=== PATIENT | male | born 1985 | race Caucasian/White ===

== ENCOUNTER 2016-12-20 19:16 | Inpatient (IN) | payer MEDICAID ==
[~2016-12-20 19:16] MED LIST: NICOTINE 14 MG PATCH TOP SCH
[2016-12-20] MEDS ORDERED: LIDOCAINE-EPINEPH-TETRACAINE 3 ML SYRINGE TOP STA (19:38)
[2016-12-20] MEDS ORDERED: LIDOCAINE-EPINEPH-TETRACAINE 3 ML SYRINGE TOP ONE (19:39)
[2016-12-20] MEDS ORDERED: SODIUM CHLORIDE 0.9% 1,000 ML IV ONE ×2 (20:12)
[2016-12-20] MEDS ORDERED: FOLIC ACID INJ 1 MG, THIAMINE INJ 100 MG, MAGNESIUM SULFATE 2 GM, MULTIVITAMIN 10 ML in... IV STA ×5 (20:27)
[2016-12-20] MEDS ORDERED: MAGNESIUM SULFATE 2 GRAM 50 ML IV ONE (20:44)
[2016-12-20] MEDS ORDERED: THIAMINE 100 MG/1 ML 2 ML MDV ONE (20:45)
[2016-12-20] MEDS ORDERED: ONDANSETRON 4 MG/2 ML VIAL IVP PRN (21:49)
[2016-12-20] MEDS ORDERED: PROCHLORPERAZINE 10 MG/2 ML VIAL IVP PRN (21:49)
[2016-12-20] MEDS ORDERED: TEMAZEPAM 15 MG CAPSULE PO PRN (21:49)
[2016-12-20] MEDS ORDERED: levETIRAcetam INJ 1,000 MG in SODIUM CHLORIDE 0.9% 100ML 100 ML IV STA (21:49)
[2016-12-20] MEDS ORDERED: ACETAMINOPHEN 325 MG TABLET PO PRN (21:49)
[2016-12-20] MEDS ORDERED: LORazepam 2 MG/ML SYRINGE IVP STA (21:49)
[2016-12-20] MEDS: SODIUM CHLORIDE FLUSH 0.9% 10 ML SYRINGE IVP SCH (22:40)
[2016-12-20] MEDS ORDERED: LORazepam 2 MG/ML SYRINGE ONE (22:59)
[2016-12-20] MEDS: MORPHINE 2 MG/ML SYRINGE IVP PRN (23:03)
[2016-12-20] MEDS: NS W/20 MEQ KCL 1,000 ML IV SCH (23:09)
[2016-12-21] MEDS: MORPHINE 2 MG/ML SYRINGE IVP PRN ×7 (01:51→21:55)
[2016-12-21] MEDS: SODIUM CHLORIDE FLUSH 0.9% 10 ML SYRINGE IVP PRN (01:51)
[2016-12-21] MEDS ORDERED: POTASSIUM CHLOR 10 MEQ/100 ML 100 ML IV ONE (02:23)
[2016-12-21] MEDS: POTASSIUM CHLOR 10 MEQ/100 ML 100 ML IV SCH ×4 (03:27→07:54)
[2016-12-21] MEDS: oxyCODONE 5 MG TABLET PO PRN ×4 (03:27→21:54)
[2016-12-21] MEDS: NS W/20 MEQ KCL 1,000 ML IV SCH ×2 (08:38→21:53)
[2016-12-21] MEDS ORDERED: MULTIVITAMIN 10 ML, THIAMINE INJ 100 MG, FOLIC ACID INJ 1 MG in SODIUM CHLORIDE 0.9% 1,... IV SCH (09:00)
[2016-12-21] MEDS ORDERED: ENOXAPARIN 40 MG/0.4 ML SYRINGE SUBQ SCH (09:00)
[2016-12-21] MEDS ORDERED: carBAMazepine 200 MG TABLET PO SCH (09:00)
[2016-12-21] MEDS: LORazepam 2 MG/ML SYRINGE IVP PRN ×4 (09:03→19:36)
[2016-12-21] MEDS: SODIUM CHLORIDE FLUSH 0.9% 10 ML SYRINGE IVP SCH ×3 (09:26→22:03)
[2016-12-21] MEDS: carBAMazepine 200 MG TABLET PO SCH ×2 (09:58→21:53)
[2016-12-21] MEDS: CARVEDILOL 12.5 MG TABLET PO SCH ×2 (09:59→21:53)
[2016-12-21] MEDS: NICOTINE 14 MG PATCH TOP SCH (10:02)
[2016-12-21] MEDS: POLYETHYLENE GLYCOL 3350 17 GM PACKET PO SCH (10:02)
[2016-12-21] MEDS: POTASSIUM CHLORIDE 20 MEQ TABLET PO SCH ×2 (11:59→21:53)
[2016-12-22] MEDS: MORPHINE 2 MG/ML SYRINGE IVP PRN ×5 (00:09→10:18)
[2016-12-22] MEDS: SODIUM CHLORIDE FLUSH 0.9% 10 ML SYRINGE IVP SCH ×4 (05:40→20:25)
[2016-12-22] MEDS: NS W/20 MEQ KCL 1,000 ML IV SCH (07:52)
[2016-12-22] MEDS: POTASSIUM CHLORIDE 20 MEQ TABLET PO SCH ×3 (07:53→20:14)
[2016-12-22] MEDS: carBAMazepine 200 MG TABLET PO SCH ×2 (07:53→20:14)
[2016-12-22] MEDS: CARVEDILOL 12.5 MG TABLET PO SCH ×2 (07:54→20:14)
[2016-12-22] MEDS: LORazepam 2 MG/ML SYRINGE IVP PRN ×4 (07:58→22:42)
[2016-12-22] MEDS ORDERED: THIAMINE 100 MG TABLET PO SCH (08:00)
[2016-12-22] MEDS ORDERED: PRENATAL VITAMIN TABLET PO SCH (08:00)
[2016-12-22] MEDS ORDERED: FOLIC ACID 1 MG TABLET PO SCH (09:00)
[2016-12-22] MEDS: POLYETHYLENE GLYCOL 3350 17 GM PACKET PO SCH (09:10)
[2016-12-22] MEDS: NICOTINE 14 MG PATCH TOP SCH (09:10)
[2016-12-22] MEDS ORDERED: SODIUM CHLORIDE 0.9% 1,000 ML IV ONE (11:31)
[2016-12-22] MEDS ORDERED: MIDAZOLAM 2 MG/2 ML VIAL IVP ONE (11:45)
[2016-12-22] MEDS ORDERED: PROPOFOL 200 MG/20 ML VIAL IVP ONE (11:45)
[2016-12-22] MEDS ORDERED: TRANEXAMIC ACID 1,000 MG/10 ML VIAL IV ONE (11:45)
[2016-12-22] MEDS ORDERED: LIDOCAINE-PF 2% 10 ML AMP SUBQ ONE (11:45)
[2016-12-22] MEDS ORDERED: SUCCINYLCHOLINE 200 MG/10 ML VIAL IVP ONE (11:45)
[2016-12-22] MEDS ORDERED: ACETAMINOPHEN 1,000 MG/100 ML VIAL IV ONE (11:45)
[2016-12-22] MEDS ORDERED: DEXAMETHASONE 4 MG/ML VIAL IVP ONE (11:45)
[2016-12-22] MEDS ORDERED: ONDANSETRON 4 MG/2 ML VIAL IVP ONE (11:45)
[2016-12-22] MEDS ORDERED: fentaNYL 100 MCG/2 ML VIAL IVP ONE (11:45)
[2016-12-22] MEDS ORDERED: ROCURONIUM 50 MG/5 ML VIAL IVP ONE (11:45)
[2016-12-22] MEDS ORDERED: KETOROLAC 30 MG/ML VIAL IM ONE (11:57)
[2016-12-22] MEDS ORDERED: EPINEPHrine 1 MG/ML AMP IM ONE (11:59)
[2016-12-22] MEDS ORDERED: ROPIVACAINE 0.2% PF 20 ML AMPULE SUBQ ONE (12:00)
[2016-12-22] MEDS ORDERED: MORPHINE PF 5 MG/10 ML AMP SUBQ ONE (12:01)
[2016-12-22] MEDS ORDERED: LACTATED RINGERS 1,000 ML IV ONE (12:03)
[2016-12-22] MEDS ORDERED: ONDANSETRON 4 MG/2 ML VIAL IVP PRN (13:16)
[2016-12-22] MEDS ORDERED: ACETAMINOPHEN 325 MG TABLET PO PRN (13:16)
[2016-12-22] MEDS ORDERED: SENNA 8.6 MG TABLET PO PRN (13:16)
[2016-12-22] MEDS ORDERED: BISACODYL 10 MG SUPP PR PRN (13:16)
[2016-12-22] MEDS ORDERED: PROCHLORPERAZINE 10 MG/2 ML VIAL IVP PRN (13:16)
[2016-12-22] MEDS: LACTATED RINGERS 1,000 ML IV SCH ×2 (14:56→20:13)
[2016-12-22] MEDS ORDERED: LORazepam 0.5 MG TABLET PO STA (19:13)
[2016-12-22] MEDS: ceFAZolin 2 GM/50 ML 50 ML IV SCH (20:14)
[2016-12-23] MEDS: LORazepam 2 MG/ML SYRINGE IVP PRN ×8 (00:41→15:35)
[2016-12-23] MEDS: ceFAZolin 2 GM/50 ML 50 ML IV SCH (04:35)
[2016-12-23] MEDS ORDERED: HALOPERIDOL 5 MG/ML VIAL IM ONE (04:49)
[2016-12-23] MEDS: SODIUM CHLORIDE FLUSH 0.9% 10 ML SYRINGE IVP SCH ×3 (06:11→21:04)
[2016-12-23] MEDS: LACTATED RINGERS 1,000 ML IV SCH ×2 (07:10→07:23)
[2016-12-23] MEDS ORDERED: HALOPERIDOL 5 MG/ML VIAL IVP SCH (11:00)
[2016-12-23] MEDS ORDERED: MAGNESIUM SULFATE 5 GM/10 ML VIAL IV STA (11:27)
[2016-12-23] MEDS ORDERED: HALOPERIDOL 5 MG/ML VIAL IVP ONE (11:38)
[2016-12-23] MEDS ORDERED: HALOPERIDOL 5 MG/ML VIAL IVP PRN (11:41)
[2016-12-23] MEDS ORDERED: SODIUM PHOSPHATE 15 MMOL in SODIUM CHLORIDE 0.9% 250 ML IV ONE (12:00)
[2016-12-23] MEDS ORDERED: MAGNESIUM SULFATE 2 GRAM 50 ML IV ONE (12:00)
[2016-12-23] MEDS: NICOTINE 14 MG PATCH TOP SCH ×2 (13:56→14:20)
[2016-12-23] MEDS: POLYETHYLENE GLYCOL 3350 17 GM PACKET PO SCH ×2 (13:56→14:21)
[2016-12-23] MEDS: CARVEDILOL 12.5 MG TABLET PO SCH ×2 (13:56→20:50)
[2016-12-23] MEDS: METOPROLOL 5 MG/5 ML VIAL IVP SCH ×2 (14:19→18:10)
[2016-12-23] MEDS: levETIRAcetam INJ 500 MG in SODIUM CHLORIDE 0.9% 100ML 100 ML IV SCH ×2 (14:22→20:48)
[2016-12-23] MEDS ORDERED: POTASSIUM CHLORIDE 20 MEQ TABLET PO ONE (14:30)
[2016-12-23] MEDS: LORazepam 100MG/100ML 100 ML IV SCH ×3 (14:32→20:49)
[2016-12-23] MEDS: MULTIVITAMIN 10 ML, FOLIC ACID INJ 1 MG, THIAMINE INJ 100 MG, MAGNESIUM SULFATE 2 GM in... IV SCH ×5 (14:34)
[2016-12-23] MEDS: oxyCOD/ACETAMIN 5 MG/325 MG TABLET PO PRN (15:35)
[2016-12-23] MEDS: MORPHINE 2 MG/ML SYRINGE IVP PRN (15:36)
[2016-12-24] MEDS: METOPROLOL 5 MG/5 ML VIAL IVP SCH ×4 (00:03→17:43)
[2016-12-24] MEDS: LORazepam 100MG/100ML 100 ML IV SCH ×3 (03:09→23:18)
[2016-12-24] MEDS: SODIUM CHLORIDE FLUSH 0.9% 10 ML SYRINGE IVP SCH ×2 (05:51→15:14)
[2016-12-24] MEDS: CARVEDILOL 12.5 MG TABLET PO SCH ×2 (09:38→23:34)
[2016-12-24] MEDS: ENOXAPARIN 30 MG/0.3 ML SYRINGE SUBQ SCH (09:39)
[2016-12-24] MEDS: levETIRAcetam INJ 500 MG in SODIUM CHLORIDE 0.9% 100ML 100 ML IV SCH ×2 (09:48→20:41)
[2016-12-24] MEDS: MULTIVITAMIN 10 ML, FOLIC ACID INJ 1 MG, THIAMINE INJ 100 MG, MAGNESIUM SULFATE 2 GM in... IV SCH ×5 (10:15)
[2016-12-24] MEDS: LORazepam 2 MG/ML SYRINGE IVP PRN (12:19)
[2016-12-24] MEDS: SODIUM CHLORIDE FLUSH 0.9% 10 ML SYRINGE IVP PRN (13:36)
[2016-12-24] MEDS: MORPHINE 2 MG/ML SYRINGE IVP PRN ×2 (13:36→22:51)
[2016-12-25] MEDS: SODIUM CHLORIDE FLUSH 0.9% 10 ML SYRINGE IVP SCH ×4 (00:22→21:42)
[2016-12-25] MEDS: METOPROLOL 5 MG/5 ML VIAL IVP SCH ×4 (00:28→18:47)
[2016-12-25] MEDS: LORazepam 100MG/100ML 100 ML IV SCH ×4 (04:16→23:35)
[2016-12-25] MEDS: POTASSIUM CHLORIDE 20 MEQ TABLET PO SCH ×2 (06:09→10:24)
[2016-12-25] MEDS: oxyCOD/ACETAMIN 5 MG/325 MG TABLET PO PRN (06:18)
[2016-12-25] MEDS: levETIRAcetam INJ 500 MG in SODIUM CHLORIDE 0.9% 100ML 100 ML IV SCH ×2 (09:02→21:29)
[2016-12-25] MEDS: CARVEDILOL 12.5 MG TABLET PO SCH ×2 (09:05→21:43)
[2016-12-25] MEDS: NICOTINE 14 MG PATCH TOP SCH (09:06)
[2016-12-25] MEDS: ENOXAPARIN 30 MG/0.3 ML SYRINGE SUBQ SCH (10:35)
[2016-12-25] MEDS: POLYETHYLENE GLYCOL 3350 17 GM PACKET PO SCH (10:39)
[2016-12-25] MEDS: MULTIVITAMIN 10 ML, FOLIC ACID INJ 1 MG, THIAMINE INJ 100 MG, MAGNESIUM SULFATE 2 GM in... IV SCH ×5 (10:40)
[2016-12-25] MEDS: MORPHINE 2 MG/ML SYRINGE IVP PRN (21:29)
[2016-12-25] MEDS: ACETAMINOPHEN 1,000 MG/100 ML 100 ML IV PRN (23:05)
[2016-12-26] MEDS: METOPROLOL 5 MG/5 ML VIAL IVP SCH ×4 (00:04→19:36)
[2016-12-26] MEDS: MORPHINE 2 MG/ML SYRINGE IVP PRN (00:15)
[2016-12-26] MEDS ORDERED: HALOPERIDOL 5 MG/ML VIAL IM SCH (00:48)
[2016-12-26] MEDS: LORazepam 100MG/100ML 100 ML IV SCH ×4 (03:15→21:37)
[2016-12-26] MEDS: SODIUM CHLORIDE FLUSH 0.9% 10 ML SYRINGE IVP SCH ×3 (06:06→23:33)
[2016-12-26] MEDS: ACETAMINOPHEN 1,000 MG/100 ML 100 ML IV PRN (08:34)
[2016-12-26] MEDS: CARVEDILOL 12.5 MG TABLET PO SCH ×2 (09:42→21:02)
[2016-12-26] MEDS: MULTIVITAMIN 10 ML, FOLIC ACID INJ 1 MG, THIAMINE INJ 100 MG, MAGNESIUM SULFATE 2 GM in... IV SCH ×5 (09:43)
[2016-12-26] MEDS: levETIRAcetam INJ 500 MG in SODIUM CHLORIDE 0.9% 100ML 100 ML IV SCH ×2 (09:43→21:02)
[2016-12-26] MEDS: ENOXAPARIN 30 MG/0.3 ML SYRINGE SUBQ SCH (09:43)
[2016-12-26] MEDS: POLYETHYLENE GLYCOL 3350 17 GM PACKET PO SCH (09:43)
[2016-12-26] MEDS: NICOTINE 14 MG PATCH TOP SCH (09:59)
[2016-12-26] MEDS ORDERED: POTASSIUM CHLORIDE 20 MEQ TABLET PO ONE (16:15)
[2016-12-26] MEDS: SENNA 8.6 MG TABLET PO SCH ×2 (17:26→23:33)
[2016-12-27] MEDS: METOPROLOL 5 MG/5 ML VIAL IVP SCH ×4 (00:28→18:14)
[2016-12-27] MEDS: LORazepam 100MG/100ML 100 ML IV SCH ×4 (03:54→23:28)
[2016-12-27] MEDS: SENNA 8.6 MG TABLET PO SCH ×2 (06:14→11:56)
[2016-12-27] MEDS: SODIUM CHLORIDE FLUSH 0.9% 10 ML SYRINGE IVP SCH ×3 (06:29→22:56)
[2016-12-27] MEDS: levETIRAcetam INJ 500 MG in SODIUM CHLORIDE 0.9% 100ML 100 ML IV SCH ×2 (11:29→21:50)
[2016-12-27] MEDS: CARVEDILOL 12.5 MG TABLET PO SCH ×2 (11:55→21:14)
[2016-12-27] MEDS: NICOTINE 14 MG PATCH TOP SCH (11:55)
[2016-12-27] MEDS: ENOXAPARIN 30 MG/0.3 ML SYRINGE SUBQ SCH (11:55)
[2016-12-27] MEDS: THIAMINE 100 MG TABLET PO SCH (11:56)
[2016-12-27] MEDS: PRENATAL VITAMIN TABLET PO SCH (11:56)
[2016-12-27] MEDS: POLYETHYLENE GLYCOL 3350 17 GM PACKET PO SCH (11:57)
[2016-12-27] MEDS ORDERED: POTASSIUM CHLORIDE 20 MEQ TABLET PO ONE ×2 (12:43→15:00)
[2016-12-27] MEDS: LORazepam 2 MG/ML SYRINGE IVP PRN ×3 (14:21→16:01)
[2016-12-27] MEDS: MAGNESIUM OXIDE 400 MG TABLET PO SCH ×2 (14:44→19:38)
[2016-12-27] MEDS ORDERED: LORazepam 2 MG/ML SYRINGE IVP STA (16:25)
[2016-12-27] MEDS ORDERED: MAGNESIUM SULFATE 2 GRAM 50 ML IV ONE ×2 (19:40→19:46)
[2016-12-27] MEDS: MORPHINE 2 MG/ML SYRINGE IVP PRN (19:56)
[2016-12-27] MEDS ORDERED: MAGNESIUM SULFATE 2 GRAM 50 ML IV SCH (20:17)
[2016-12-27] MEDS ORDERED: HALOPERIDOL 5 MG/ML VIAL IM ONE (20:56)
[2016-12-28] MEDS: METOPROLOL 5 MG/5 ML VIAL IVP SCH ×4 (00:14→19:22)
[2016-12-28] MEDS: LORazepam 100MG/100ML 100 ML IV SCH ×4 (04:33→19:51)
[2016-12-28] MEDS ORDERED: CALCIUM GLUCONATE 1,000 MG in SODIUM CHLORIDE 0.9% 50 ML IV SCH (06:27)
[2016-12-28] MEDS: SODIUM CHLORIDE FLUSH 0.9% 10 ML SYRINGE IVP SCH ×3 (06:47→21:37)
[2016-12-28] MEDS: POTASSIUM CHLOR 10 MEQ/100 ML 100 ML IV SCH ×4 (08:20→12:02)
[2016-12-28] MEDS: levETIRAcetam INJ 500 MG in SODIUM CHLORIDE 0.9% 100ML 100 ML IV SCH ×2 (09:00→21:37)
[2016-12-28] MEDS ORDERED: MAGNESIUM SULFATE 2 GRAM 50 ML IV ONE (10:02)
[2016-12-28] MEDS: PRENATAL VITAMIN TABLET PO SCH (10:10)
[2016-12-28] MEDS: POLYETHYLENE GLYCOL 3350 17 GM PACKET PO SCH (10:11)
[2016-12-28] MEDS: NICOTINE 14 MG PATCH TOP SCH (10:12)
[2016-12-28] MEDS: CARVEDILOL 12.5 MG TABLET PO SCH ×2 (10:12→21:24)
[2016-12-28] MEDS: THIAMINE 100 MG TABLET PO SCH (10:14)
[2016-12-28] MEDS: ENOXAPARIN 30 MG/0.3 ML SYRINGE SUBQ SCH (10:36)
[2016-12-28] MEDS ORDERED: HALOPERIDOL 5 MG/ML VIAL IM PRN (23:10)
[2016-12-28] MEDS: MORPHINE 2 MG/ML SYRINGE IVP PRN (23:56)
[2016-12-29] MEDS: METOPROLOL 5 MG/5 ML VIAL IVP SCH ×4 (00:07→18:12)
[2016-12-29] MEDS: LORazepam 100MG/100ML 100 ML IV SCH ×4 (00:22→17:45)
[2016-12-29] MEDS: SODIUM CHLORIDE FLUSH 0.9% 10 ML SYRINGE IVP SCH ×3 (05:08→22:00)
[2016-12-29] MEDS: POLYETHYLENE GLYCOL 3350 17 GM PACKET PO SCH (09:09)
[2016-12-29] MEDS: levETIRAcetam INJ 500 MG in SODIUM CHLORIDE 0.9% 100ML 100 ML IV SCH ×2 (09:42→21:23)
[2016-12-29] MEDS: ENOXAPARIN 30 MG/0.3 ML SYRINGE SUBQ SCH (09:43)
[2016-12-29] MEDS: NICOTINE 14 MG PATCH TOP SCH (09:43)
[2016-12-29] MEDS: CARVEDILOL 12.5 MG TABLET PO SCH ×2 (09:44→21:23)
[2016-12-29] MEDS: THIAMINE 100 MG TABLET PO SCH (09:44)
[2016-12-29] MEDS: PRENATAL VITAMIN TABLET PO SCH (09:50)
[2016-12-29] MEDS: oxyCOD/ACETAMIN 5 MG/325 MG TABLET PO PRN (21:23)
[2016-12-30] MEDS: METOPROLOL 5 MG/5 ML VIAL IVP SCH ×4 (06:29→18:19)
[2016-12-30] MEDS: SODIUM CHLORIDE FLUSH 0.9% 10 ML SYRINGE IVP SCH ×3 (06:31→22:01)
[2016-12-30] MEDS: MAGNESIUM OXIDE 400 MG TABLET PO SCH ×2 (07:27→15:32)
[2016-12-30] MEDS: POLYETHYLENE GLYCOL 3350 17 GM PACKET PO SCH (08:55)
[2016-12-30] MEDS: PRENATAL VITAMIN TABLET PO SCH (08:55)
[2016-12-30] MEDS: NICOTINE 14 MG PATCH TOP SCH (08:56)
[2016-12-30] MEDS: THIAMINE 100 MG TABLET PO SCH (08:56)
[2016-12-30] MEDS: CARVEDILOL 12.5 MG TABLET PO SCH ×2 (08:56→21:17)
[2016-12-30] MEDS: ENOXAPARIN 30 MG/0.3 ML SYRINGE SUBQ SCH (08:56)
[2016-12-30] MEDS: levETIRAcetam INJ 500 MG in SODIUM CHLORIDE 0.9% 100ML 100 ML IV SCH ×2 (08:56→21:17)
[2016-12-30] MEDS ORDERED: MAGNESIUM OXIDE 400 MG TABLET PO SCH (16:00)
[2016-12-31] MEDS: METOPROLOL 5 MG/5 ML VIAL IVP SCH ×4 (00:01→18:12)
[2016-12-31] MEDS: SODIUM CHLORIDE FLUSH 0.9% 10 ML SYRINGE IVP SCH ×3 (06:17→23:46)
[2016-12-31] MEDS: MAGNESIUM OXIDE 400 MG TABLET PO SCH ×2 (06:17→12:10)
[2016-12-31] MEDS: POLYETHYLENE GLYCOL 3350 17 GM PACKET PO SCH (08:01)
[2016-12-31] MEDS: THIAMINE 100 MG TABLET PO SCH (08:01)
[2016-12-31] MEDS: PRENATAL VITAMIN TABLET PO SCH (08:01)
[2016-12-31] MEDS: NICOTINE 14 MG PATCH TOP SCH (08:01)
[2016-12-31] MEDS: ENOXAPARIN 30 MG/0.3 ML SYRINGE SUBQ SCH (08:02)
[2016-12-31] MEDS: levETIRAcetam INJ 500 MG in SODIUM CHLORIDE 0.9% 100ML 100 ML IV SCH ×2 (09:13→21:32)
[2016-12-31] MEDS: CARVEDILOL 12.5 MG TABLET PO SCH ×2 (09:45→21:32)
[2016-12-31] MEDS: oxyCOD/ACETAMIN 5 MG/325 MG TABLET PO PRN ×2 (09:52→18:09)
[2017-01-01] MEDS: METOPROLOL 5 MG/5 ML VIAL IVP SCH ×2 (00:59→05:55)
[2017-01-01] MEDS: oxyCOD/ACETAMIN 5 MG/325 MG TABLET PO PRN ×4 (01:24→21:09)
[2017-01-01] MEDS: SODIUM CHLORIDE FLUSH 0.9% 10 ML SYRINGE IVP SCH ×3 (05:56→21:10)
[2017-01-01] MEDS: NICOTINE 14 MG PATCH TOP SCH (09:33)
[2017-01-01] MEDS: levETIRAcetam INJ 500 MG in SODIUM CHLORIDE 0.9% 100ML 100 ML IV SCH (09:36)
[2017-01-01] MEDS: CARVEDILOL 12.5 MG TABLET PO SCH ×2 (10:19→21:09)
[2017-01-01] MEDS: PRENATAL VITAMIN TABLET PO SCH (10:20)
[2017-01-01] MEDS: THIAMINE 100 MG TABLET PO SCH (10:21)
[2017-01-01] MEDS: ENOXAPARIN 30 MG/0.3 ML SYRINGE SUBQ SCH (10:23)
[2017-01-01] MEDS: POLYETHYLENE GLYCOL 3350 17 GM PACKET PO SCH (10:23)
[2017-01-01] MEDS: SODIUM CHLORIDE FLUSH 0.9% 10 ML SYRINGE IVP PRN (10:26)
[2017-01-01] MEDS: levETIRAcetam 250 MG TABLET PO SCH (21:09)
[2017-01-02] MEDS: SODIUM CHLORIDE FLUSH 0.9% 10 ML SYRINGE IVP SCH ×3 (05:31→20:58)
[2017-01-02] MEDS: CARVEDILOL 12.5 MG TABLET PO SCH ×2 (09:26→20:56)
[2017-01-02] MEDS: THIAMINE 100 MG TABLET PO SCH (09:27)
[2017-01-02] MEDS: levETIRAcetam 250 MG TABLET PO SCH ×2 (09:27→20:56)
[2017-01-02] MEDS: PRENATAL VITAMIN TABLET PO SCH ×2 (09:27→09:28)
[2017-01-02] MEDS: POLYETHYLENE GLYCOL 3350 17 GM PACKET PO SCH (09:28)
[2017-01-02] MEDS: NICOTINE 14 MG PATCH TOP SCH ×2 (09:28→12:49)
[2017-01-02] MEDS: ENOXAPARIN 30 MG/0.3 ML SYRINGE SUBQ SCH (09:29)
[2017-01-02] MEDS: oxyCOD/ACETAMIN 5 MG/325 MG TABLET PO PRN ×2 (09:31→19:48)
[2017-01-02] MEDS ORDERED: MAGNESIUM OXIDE 400 MG TABLET PO SCH (20:40)
[2017-01-03] MEDS: SODIUM CHLORIDE FLUSH 0.9% 10 ML SYRINGE IVP SCH (06:44)
[2017-01-03] MEDS: oxyCOD/ACETAMIN 5 MG/325 MG TABLET PO PRN (07:56)
[2017-01-03] MEDS: NICOTINE 14 MG PATCH TOP SCH (09:18)
[2017-01-03] MEDS: POLYETHYLENE GLYCOL 3350 17 GM PACKET PO SCH (09:18)
[2017-01-03] MEDS: CARVEDILOL 12.5 MG TABLET PO SCH (09:19)
[2017-01-03] MEDS: THIAMINE 100 MG TABLET PO SCH (09:19)
[2017-01-03] MEDS: levETIRAcetam 250 MG TABLET PO SCH (09:19)
[2017-01-03] MEDS: PRENATAL VITAMIN TABLET PO SCH (09:20)
[2017-01-03] MEDS: ENOXAPARIN 30 MG/0.3 ML SYRINGE SUBQ SCH (09:20)
== END 2017-01-03 12:40 | disposition home health service (06) | DRG 470 ==
PROC: 0HQ1XZZ Repair Face Skin, External Approach (ICD-10-PCS; 2016-12-20)
PROC: 0SRS0JA Replacement of Left Hip Joint, Femoral Surface with Synthetic Substitute, Uncemented, Open Approach (ICD-10-PCS; principal; 2016-12-22 11:30)
DX: S72.002A Fracture of unspecified part of neck of left femur, initial encounter for closed fracture (principal); E87.1 Hypo-osmolality and hyponatremia; F10.231 Alcohol dependence with withdrawal delirium; G40.909 Epilepsy, unspecified, not intractable, without status epilepticus; E87.6 Hypokalemia; F10.10 Alcohol abuse, uncomplicated; F17.200 Nicotine dependence, unspecified, uncomplicated; S01.81XA Laceration without foreign body of other part of head, initial encounter; I10 Essential (primary) hypertension; E83.51 Hypocalcemia; W19.XXXA Unspecified fall, initial encounter; Y92.009 Unspecified place in unspecified non-institutional (private) residence as the place of occurrence of the external cause; E86.1 Hypovolemia; E87.8 Other disorders of electrolyte and fluid balance, not elsewhere classified; D69.6 Thrombocytopenia, unspecified; M81.0 Age-related osteoporosis without current pathological fracture; E83.42 Hypomagnesemia; Z91.14 Patient's other noncompliance with medication regimen; R73.09 Other abnormal glucose

== ENCOUNTER 2017-01-30 08:21 | Outpatient (CLI) | payer MEDICAID | END 2017-01-30 08:22 | disposition home or self-care (01) | DX: F10.259 Alcohol dependence with alcohol-induced psychotic disorder, unspecified (principal); R56.9 Unspecified convulsions ==

== ENCOUNTER 2017-07-09 10:04 | Outpatient (CLI) | payer MEDICAID ==
--- NOTE | 2017-07-09 12:48 | Mammography Report ---
DIGITAL DIAGNOSTIC BILATERAL MAMMOGRAM: 07/09/2017 CLINICAL INDICATION: Palpable abnormality and pain, right greater than left. TECHNIQUE: Bilateral CC and MLO views. FINDINGS: The breasts demonstrate fatty replacement. There is asymmetric gynecomastia present, righ t greater than left. No suspicious masses, clustered microcalcifications, or regions of architectura l distortion are identified. IMPRESSION: ASYMMETRIC GYNECOMASTIA. RECOMMENDATION: Continued clinical management. BIRADS CATEGORY 2 - BENIGN FINDINGS. STANDARD QUALIFYING STATEMENTS 1. This examination was reviewed with the aid of Computer-Aided Detection (CAD). 2. A negative or benign imaging report should not delay biopsy if clinically suspicious findings are present. Consider surgical consultation if warranted. More than 5% of cancers are not identified by i maging. 3. Dense breasts may obscure an underlying neoplasm. JOB #: [id number] EXT JOB #:[id number]
== END 2017-07-09 10:05 | disposition home or self-care (01) ==
LOC: DI 10:04
PROVIDERS: ATTEND Physician Assistant
DX: N62 Hypertrophy of breast (principal)
CPT/HCPCS: 77066

== ENCOUNTER 2018-01-01 09:38 | Outpatient (CLI) | payer MEDICAID ==
[2018-01-01 12:42] LABS: BASOPHILS # (AUTO) 0.1 10^3/uL (0.0-0.1); BASOPHILS % (AUTO) 0.5 %; EOSINOPHILS # (AUTO) 0.5 10^3/uL (0.0-0.7); EOSINOPHILS % (AUTO) 5.1 %; HGB - HEMOGLOBIN 16.2 g/dL (14.0-18.0); LYMPHOCYTES # (AUTO) 3.4 10^3/uL (1.5-3.5); LYMPHOCYTES % (AUTO) 32.2 %; MEAN CORPUSCULAR HEMOGLOBIN 32.2 pg (27.0-31.0); MEAN CORPUSCULAR HGB CONC 34.1 g/dL (32.0-36.0); MEAN CORPUSCULAR VOLUME 94.3 fL (80.0-94.0); MEAN PLATELET VOLUME 7.6 fL (7.4-11.4); MONOCYTES # (AUTO) 0.6 10^3/uL (0.0-1.0); MONOCYTES % (AUTO) 5.6 %; NEUTROPHILS % (AUTO) 56.6 %; PLT - PLATELET COUNT 285 10^3/uL (130-450); RED BLOOD COUNT 5.02 10^6/uL (4.70-6.10); WHITE BLOOD COUNT 10.6 x10^3/uL (4.8-10.8)
[2018-01-01 12:55] LABS: THYROID STIMULATING HORMONE 3.09 uIU/mL (0.34-5.60)
[2018-01-01 12:58] LABS: ALBUMIN 4.6 g/dL (3.2-5.5); ALBUMIN/GLOBULIN RATIO 1.4 (1.0-2.2); ALKALINE PHOSPHATASE 107 IU/L (42-121); ALT ALANINE AMINOTRANSFERASE 19 IU/L (10-60); AST ASPARTATE AMINOTRANSFERASE 23 IU/L (10-42); BILIRUBIN,TOTAL 0.6 mg/dL (0.2-1.0); BUN - BLOOD UREA NITROGEN 10 mg/dL (6-20); CALCIUM 9.2 mg/dL (8.5-10.3); CARBAMAZEPINE (TEGRETOL) 6.2 ug/mL; CARBON DIOXIDE - CO2 27 mmol/L (21-32); CHLORIDE 98 mmol/L (101-111); CHOL/HDL RATIO 4.9 (<5.0); CHOLESTEROL 222 mg/dL; CREATININE 0.7 mg/dL (0.6-1.2); GFR - MDRD 129 (>89); GLUCOSE 111 mg/dL (70-100); HDL CHOLESTEROL 45 mg/dL; LDL CHOLESTEROL,CALCULATED 142 mg/dL; LDL/HDL RATIO 3.2 (<3.6); SODIUM 135 mmol/L (135-145); VLDL CHOLESTEROL 35 mg/dL
== END 2018-01-01 09:39 | disposition home or self-care (01) ==
LOC: LAB.N 09:38
PROVIDERS: ATTEND Physician Assistant Medical
DX: F17.200 Nicotine dependence, unspecified, uncomplicated (principal); R00.0 Tachycardia, unspecified; K76.0 Fatty (change of) liver, not elsewhere classified; I10 Essential (primary) hypertension; E53.8 Deficiency of other specified B group vitamins; R79.89 Other specified abnormal findings of blood chemistry; N63.10 Unspecified lump in the right breast, unspecified quadrant; R56.9 Unspecified convulsions
CPT/HCPCS: 36415; 80053; 80061; 80156; 82746; 83721; 84443; 85025

== ENCOUNTER 2018-11-29 10:44 | Outpatient (CLI) | payer MEDICAID | END 2018-11-29 23:59 | disposition home or self-care (01) | LOC: RT.N 10:44 | PROVIDERS: ATTEND Physician Assistant Medical | DX: R00.2 Palpitations (principal) | CPT/HCPCS: 93005 ==

== ENCOUNTER 2018-12-08 10:17 | Outpatient (CLI) | payer MEDICAID ==
[2018-12-08 12:51] LABS: BASOPHILS # (AUTO) 0.1 10^3/uL (0.0-0.1); EOSINOPHILS # (AUTO) 0.5 10^3/uL (0.0-0.7); EOSINOPHILS % (AUTO) 5.1 %; HGB - HEMOGLOBIN 16.1 g/dL (14.0-18.0); LYMPHOCYTES # (AUTO) 3.1 10^3/uL (1.5-3.5); LYMPHOCYTES % (AUTO) 34.7 %; MEAN CORPUSCULAR HEMOGLOBIN 32.5 pg (27.0-31.0); MEAN CORPUSCULAR HGB CONC 33.9 g/dL (32.0-36.0); MEAN CORPUSCULAR VOLUME 95.8 fL (80.0-94.0); MEAN PLATELET VOLUME 7.8 fL (7.4-11.4); MONOCYTES # (AUTO) 0.6 10^3/uL (0.0-1.0); MONOCYTES % (AUTO) 6.7 %; NEUTROPHILS # (AUTO) 4.7 10^3/uL (1.5-6.6); NEUTROPHILS % (AUTO) 52.5 %; PLT - PLATELET COUNT 225 10^3/uL (130-450); RED BLOOD COUNT 4.95 10^6/uL (4.70-6.10); RED CELL DISTRIBUTION WIDTH 13.1 % (12.0-15.0); WHITE BLOOD COUNT 8.9 x10^3/uL (4.8-10.8)
[2018-12-08 13:16] LABS: ALBUMIN 4.6 g/dL (3.2-5.5); ALBUMIN/GLOBULIN RATIO 1.2 (1.0-2.2); ALKALINE PHOSPHATASE 79 IU/L (42-121); ALT ALANINE AMINOTRANSFERASE 21 IU/L (10-60); AST ASPARTATE AMINOTRANSFERASE 25 IU/L (10-42); BILIRUBIN,TOTAL 0.6 mg/dL (0.2-1.0); BUN - BLOOD UREA NITROGEN 9 mg/dL (6-20); CALCIUM 9.2 mg/dL (8.5-10.3); CARBAMAZEPINE (TEGRETOL) 6.7 ug/mL; CARBON DIOXIDE - CO2 28 mmol/L (21-32); CHLORIDE 97 mmol/L (101-111); CREATININE 0.7 mg/dL (0.6-1.2); GFR - MDRD 128 (>89); GLUCOSE 104 mg/dL (70-100); SODIUM 135 mmol/L (135-145); TOTAL PROTEIN 8.3 g/dL (6.7-8.2)
== END 2018-12-08 23:59 | disposition home or self-care (01) ==
LOC: LAB.N 10:17
PROVIDERS: ATTEND Physician Assistant Medical
DX: R56.9 Unspecified convulsions (principal); R00.2 Palpitations
CPT/HCPCS: 36415; 80053; 80156; 84443; 85025

== ENCOUNTER 2020-07-13 08:00 | Outpatient (CLI) | payer MEDICAID ==
[2020-07-13 13:11] LABS: BASOPHILS # (AUTO) 0.1 10^3/uL (0.0-0.1); BASOPHILS % (AUTO) 0.6 %; EOSINOPHILS # (AUTO) 0.3 10^3/uL (0.0-0.7); EOSINOPHILS % (AUTO) 2.8 %; HEMOGLOBIN A1c% 6.4 % (4.27-6.07); HGB - HEMOGLOBIN 15.4 g/dL (14.0-18.0); LYMPHOCYTES # (AUTO) 4.4 10^3/uL (1.5-3.5); LYMPHOCYTES % (AUTO) 45.8 %; MEAN CORPUSCULAR HEMOGLOBIN 31.7 pg (27.0-31.0); MEAN CORPUSCULAR VOLUME 95.9 fL (80.0-94.0); MEAN PLATELET VOLUME 9.4 fL (7.4-11.4); MONOCYTES # (AUTO) 0.6 10^3/uL (0.0-1.0); MONOCYTES % (AUTO) 5.9 %; NEUTROPHILS # (AUTO) 4.2 10^3/uL (1.5-6.6); NEUTROPHILS % (AUTO) 44.5 %; PLT - PLATELET COUNT 264 10^3/uL (130-450); RED BLOOD COUNT 4.86 10^6/uL (4.70-6.10); RED CELL DISTRIBUTION WIDTH 13.2 % (12.0-15.0); WHITE BLOOD COUNT 9.5 x10^3/uL (4.8-10.8)
[2020-07-13 13:32] LABS: ALBUMIN 4.8 g/dL (3.2-5.5); ALBUMIN/GLOBULIN RATIO 1.5 (1.0-2.2); ALKALINE PHOSPHATASE 73 IU/L (42-121); ALT ALANINE AMINOTRANSFERASE 17 IU/L (10-60); AST ASPARTATE AMINOTRANSFERASE 19 IU/L (10-42); BILIRUBIN,TOTAL 0.9 mg/dL (0.2-1.0); BUN - BLOOD UREA NITROGEN 14 mg/dL (6-20); CALCIUM 9.5 mg/dL (8.5-10.3); CARBON DIOXIDE - CO2 29 mmol/L (21-32); CHLORIDE 100 mmol/L (101-111); CHOL/HDL RATIO 4.4 (<5.0); CHOLESTEROL 212 mg/dL; GLUCOSE 138 mg/dL (70-100); HDL CHOLESTEROL 48 mg/dL; LDL CHOLESTEROL,CALCULATED 146 mg/dL; SODIUM 139 mmol/L (135-145); TOTAL PROTEIN 7.9 g/dL (6.7-8.2); VLDL CHOLESTEROL 18 mg/dL
== END 2020-07-13 23:59 | disposition home or self-care (01) ==
LOC: LAB.WCP 08:00
PROVIDERS: ATTEND Family Medicine
DX: R00.0 Tachycardia, unspecified (principal); R56.9 Unspecified convulsions; Z96.642 Presence of left artificial hip joint; I10 Essential (primary) hypertension; R73.9 Hyperglycemia, unspecified
CPT/HCPCS: 36415; 80053; 80061; 83036; 83721; 85025

== ENCOUNTER 2020-07-13 10:45 | Outpatient (CLI) | payer MEDICAID ==
--- NOTE | 2020-07-13 17:09 | DEXA Report ---
PROCEDURE: Dexa Spine and/or Hip INDICATIONS: OSTEOPOROSIS TECHNIQUE: Dual energy x-ray absorptiometry (DXA) was performed on a [employer] System. Regions measur ed are the AP Spine, femoral neck, and if needed forearm. COMPARISON: None. FINDINGS: Lumbar Spine: Bone Mineral Density 1.183 g/cm/cm,T score -0.3, normal Left Hip: Bone Mineral Density 0.664 g/cm/cm,T score -3.0, osteoporosis Left Femoral Neck: Bone Mineral Density 0.649 g/cm/cm, T score -3.2, osteoporosis (T score greater or equal to -1.0: NORMAL) (T score from -1.1 to -2.4: OSTEOPENIA) (T score less than or equal to -2.5 to: OSTEOPOROSIS) Impression: Osteoporosis. Patients with diagnosis of osteoporosis or osteopenia should have regular bone mineral density assess ment. For those eligible for Medicare, routine testing is allowed once every 2 years. Testing frequ ency can be increased for patients who have rapidly progressing disease or for those who are receivin g medical therapy to restore bone mass. Reviewed by: Juliet Parra MD, PhD on 07/13/2020 5:07 PM PDT Approved by: Juliet Parra MD, PhD on 07/13/2020 5:07 PM PDT Station ID: [id number]
== END 2020-07-13 10:46 | disposition home or self-care (01) ==
LOC: DI 10:45
PROVIDERS: ATTEND Family Medicine
DX: M81.0 Age-related osteoporosis without current pathological fracture (principal); R00.0 Tachycardia, unspecified; R56.9 Unspecified convulsions; I10 Essential (primary) hypertension; R73.9 Hyperglycemia, unspecified; Z96.642 Presence of left artificial hip joint
CPT/HCPCS: 36415; 77080; 80053; 80061; 83036; 83721; 85025

== ENCOUNTER 2020-09-18 10:21 | Outpatient (CLI) | payer MEDICAID ==
--- NOTE | 2020-09-18 11:35 | XRAY Report ---
PROCEDURE: Shoulder 2 View LT INDICATIONS: LEFT SHOULDER PAIN TECHNIQUE: 2 views of the shoulder were acquired. COMPARISON: None. FINDINGS: Bones: No fractures or dislocations. No suspicious bony lesions. Visualized ribs appear intact. Soft tissues: There is amorphous calcification in a curvilinear distribution over the expected positi on of the lateral subacromial/subdeltoid bursal space, likely calcific bursitis.. IMPRESSION: No trauma found, no significant degenerative change. Mild to moderate calcific bursitis as discussed above beneath the acromion. Reviewed by: Shane Aguilar MD on 09/18/2020 11:33 AM PST Approved by: Shane Aguilar MD on 09/18/2020 11:33 AM PST Station ID: [id number]
== END 2020-09-18 23:59 | disposition home or self-care (01) ==
LOC: DI.WCP 10:21
PROVIDERS: ATTEND Family Medicine
DX: M75.52 Bursitis of left shoulder (principal)

== ENCOUNTER 2021-05-20 08:00 | Outpatient (CLI) | payer MEDICAID ==
[2021-05-20 18:40] LABS: BASOPHILS # (AUTO) 0.1 10^3/uL (0.0-0.1); BASOPHILS % (AUTO) 0.5 %; EOSINOPHILS # (AUTO) 0.4 10^3/uL (0.0-0.7); EOSINOPHILS % (AUTO) 4.3 %; HCT - HEMATOCRIT 46.3 % (42.0-52.0); HGB - HEMOGLOBIN 15.2 g/dL (14.0-18.0); LYMPHOCYTES # (AUTO) 3.8 10^3/uL (1.5-3.5); LYMPHOCYTES % (AUTO) 38.1 %; MEAN CORPUSCULAR HEMOGLOBIN 31.4 pg (27.0-31.0); MEAN CORPUSCULAR HGB CONC 32.8 g/dL (32.0-36.0); MEAN CORPUSCULAR VOLUME 95.7 fL (80.0-94.0); MEAN PLATELET VOLUME 9.5 fL (7.4-11.4); MONOCYTES # (AUTO) 0.6 10^3/uL (0.0-1.0); MONOCYTES % (AUTO) 5.6 %; NEUTROPHILS # (AUTO) 5.2 10^3/uL (1.5-6.6); NEUTROPHILS % (AUTO) 51.4 %; PLT - PLATELET COUNT 276 10^3/uL (130-450); RED BLOOD COUNT 4.84 10^6/uL (4.70-6.10); RED CELL DISTRIBUTION WIDTH 12.9 % (12.0-15.0); WHITE BLOOD COUNT 10.1 x10^3/uL (4.8-10.8)
[2021-05-20 19:05] LABS: ALBUMIN 4.6 g/dL (3.2-5.5); ALBUMIN/GLOBULIN RATIO 1.4 (1.0-2.2); ALKALINE PHOSPHATASE 55 IU/L (42-121); ALT ALANINE AMINOTRANSFERASE 14 IU/L (10-60); AST ASPARTATE AMINOTRANSFERASE 20 IU/L (10-42); BILIRUBIN,TOTAL 0.7 mg/dL (0.2-1.0); BUN - BLOOD UREA NITROGEN 12 mg/dL (6-20); CALCIUM 9.5 mg/dL (8.5-10.3); CARBON DIOXIDE - CO2 30 mmol/L (21-32); CHLORIDE 102 mmol/L (101-111); CHOL/HDL RATIO 5.3 (<5.0); CHOLESTEROL 212 mg/dL; CREATININE 0.9 mg/dL (0.6-1.2); GFR - MDRD 94 (>89); GLUCOSE 122 mg/dL (70-100); HDL CHOLESTEROL 40 mg/dL; LDL CHOLESTEROL,CALCULATED 150 mg/dL; LDL/HDL RATIO 3.8 (<3.6); POTASSIUM 4.1 mmol/L (3.5-5.0); SODIUM 142 mmol/L (135-145); TOTAL PROTEIN 7.8 g/dL (6.7-8.2); TRIGLYCERIDES 110 mg/dL; VLDL CHOLESTEROL 22 mg/dL
[2021-05-20 19:11] LABS: THYROID STIMULATING HORMONE 2.26 uIU/mL (0.34-5.60)
[2021-05-20 19:47] LABS: ESTIMATED AVERAGE GLUCOSE 131 mg/dL (70-100); HEMOGLOBIN A1c% 6.2 % (4.27-6.07)
== END 2021-05-20 23:59 | disposition home or self-care (01) ==
LOC: LAB.WCP 08:00
PROVIDERS: ATTEND Family Medicine
DX: I10 Essential (primary) hypertension (principal); R73.9 Hyperglycemia, unspecified; G40.909 Epilepsy, unspecified, not intractable, without status epilepticus
CPT/HCPCS: 36415; 80053; 80061; 83036; 83721; 84443; 85025

== ENCOUNTER 2021-09-12 09:45 | Outpatient (CLI) | payer MEDICAID ==
--- NOTE | 2021-09-12 12:34 | XRAY Report ---
PROCEDURE: Cervical Spine w/Flex/Ext INDICATIONS: CERVICALGIA TECHNIQUE: 6 views of the cervical spine were acquired. COMPARISON: None. FINDINGS: C-SPINE: No acute, displaced fracture or malalignment. The vertebral body heights and intervertebral disc spaces are maintained. No abnormal subluxation with flexion or extension. SOFT TISSUES: No prevertebral soft tissue thickening. IMPRESSION: 1.No acute osseous abnormality of the cervical spine. Reviewed by: Renny Quintero MD on 09/12/2021 12:33 PM [facility] Approved by: Renny Quintero MD on 09/12/2021 12:33 PM [facility] Station ID: [id number]
== END 2021-09-12 09:46 | disposition home or self-care (01) ==
LOC: DI.N 09:45
PROVIDERS: ATTEND Family Medicine
DX: M54.2 Cervicalgia (principal)

== ENCOUNTER 2021-11-28 08:00 | Outpatient (CLI) | payer MEDICAID ==
[2021-11-28 18:04] LABS: BASOPHILS # (AUTO) 0.1 10^3/uL (0.0-0.1); EOSINOPHILS # (AUTO) 0.3 10^3/uL (0.0-0.7); EOSINOPHILS % (AUTO) 3.3 %; HCT - HEMATOCRIT 47.3 % (42.0-52.0); HGB - HEMOGLOBIN 15.8 g/dL (14.0-18.0); LYMPHOCYTES # (AUTO) 3.7 10^3/uL (1.5-3.5); LYMPHOCYTES % (AUTO) 40.7 %; MEAN CORPUSCULAR HEMOGLOBIN 31.4 pg (27.0-31.0); MEAN CORPUSCULAR HGB CONC 33.4 g/dL (32.0-36.0); MEAN PLATELET VOLUME 9.9 fL (7.4-11.4); MONOCYTES # (AUTO) 0.6 10^3/uL (0.0-1.0); MONOCYTES % (AUTO) 6.5 %; NEUTROPHILS # (AUTO) 4.4 10^3/uL (1.5-6.6); NEUTROPHILS % (AUTO) 48.3 %; PLT - PLATELET COUNT 244 10^3/uL (130-450); RED BLOOD COUNT 5.03 10^6/uL (4.70-6.10); RED CELL DISTRIBUTION WIDTH 12.7 % (12.0-15.0); WHITE BLOOD COUNT 9.1 x10^3/uL (4.8-10.8)
[2021-11-28 18:32] LABS: ALBUMIN 4.6 g/dL (3.2-5.5); ALBUMIN/GLOBULIN RATIO 1.4 (1.0-2.2); ALKALINE PHOSPHATASE 56 IU/L (42-121); ALT ALANINE AMINOTRANSFERASE 25 IU/L (10-60); AST ASPARTATE AMINOTRANSFERASE 22 IU/L (10-42); BILIRUBIN,TOTAL 0.8 mg/dL (0.2-1.0); BUN - BLOOD UREA NITROGEN 10 mg/dL (6-20); CALCIUM 9.5 mg/dL (8.5-10.3); CARBON DIOXIDE - CO2 30 mmol/L (21-32); CHLORIDE 100 mmol/L (101-111); CHOLESTEROL 204 mg/dL; CREATININE 0.9 mg/dL (0.6-1.2); GFR - MDRD 94 (>89); GLUCOSE 160 mg/dL (70-100); HDL CHOLESTEROL 41 mg/dL; LDL CHOLESTEROL,CALCULATED 137 mg/dL; LDL/HDL RATIO 3.3 (<3.6); SODIUM 139 mmol/L (135-145); TRIGLYCERIDES 129 mg/dL; VLDL CHOLESTEROL 26 mg/dL
[2021-11-28 18:34] LABS: THYROID STIMULATING HORMONE 1.63 uIU/mL (0.34-5.60)
[2021-11-28 20:12] LABS: ESTIMATED AVERAGE GLUCOSE 157 mg/dL (70-100); HEMOGLOBIN A1c% 7.1 % (4.27-6.07)
== END 2021-11-28 23:59 | disposition home or self-care (01) ==
LOC: LAB.WCP 08:00
PROVIDERS: ATTEND Family Medicine
DX: E11.9 Type 2 diabetes mellitus without complications (principal); R00.0 Tachycardia, unspecified; K76.0 Fatty (change of) liver, not elsewhere classified; I10 Essential (primary) hypertension; G40.909 Epilepsy, unspecified, not intractable, without status epilepticus
CPT/HCPCS: 36415; 80050; 80061; 83036; 83721

== ENCOUNTER 2022-02-27 08:15 | Outpatient (CLI) | payer MEDICAID ==
[2022-02-27 12:04] LABS: ESTIMATED AVERAGE GLUCOSE 180 mg/dL (70-100); HEMOGLOBIN A1c% 7.9 % (4.27-6.07)
[2022-02-27 12:09] LABS: CREATININE 0.9 mg/dL (0.6-1.2); POTASSIUM 4.1 mmol/L (3.5-5.0)
== END 2022-02-27 08:16 | disposition home or self-care (01) ==
LOC: LAB.N 08:15
PROVIDERS: ATTEND Family Medicine
DX: E11.9 Type 2 diabetes mellitus without complications (principal)
CPT/HCPCS: 36415; 80048; 83036

== ENCOUNTER 2022-05-27 08:04 | Outpatient (CLI) | payer MEDICAID ==
[2022-05-27 12:25] LABS: BASOPHILS % (AUTO) 0.5 %; EOSINOPHILS # (AUTO) 0.3 10^3/uL (0.0-0.7); EOSINOPHILS % (AUTO) 3.5 %; HGB - HEMOGLOBIN 15.7 g/dL (14.0-18.0); LYMPHOCYTES # (AUTO) 3.7 10^3/uL (1.5-3.5); LYMPHOCYTES % (AUTO) 50.7 %; MEAN CORPUSCULAR HEMOGLOBIN 31.2 pg (27.0-31.0); MEAN CORPUSCULAR HGB CONC 33.4 g/dL (32.0-36.0); MEAN CORPUSCULAR VOLUME 93.3 fL (80.0-94.0); MEAN PLATELET VOLUME 9.6 fL (7.4-11.4); MONOCYTES # (AUTO) 0.4 10^3/uL (0.0-1.0); MONOCYTES % (AUTO) 5.4 %; NEUTROPHILS # (AUTO) 2.9 10^3/uL (1.5-6.6); NEUTROPHILS % (AUTO) 39.8 %; PLT - PLATELET COUNT 229 10^3/uL (130-450); RED BLOOD COUNT 5.04 10^6/uL (4.70-6.10); WHITE BLOOD COUNT 7.4 x10^3/uL (4.8-10.8)
[2022-05-27 12:34] LABS: ALBUMIN/GLOBULIN RATIO 1.6 (1.0-2.2); BILIRUBIN,TOTAL 0.7 mg/dL (0.2-1.0); CALCIUM 10.4 mg/dL (8.5-10.3); TOTAL PROTEIN 8.1 g/dL (6.7-8.2)
[2022-05-27 12:39] LABS: ESTIMATED AVERAGE GLUCOSE 154 mg/dL (70-100)
[2022-05-27 12:40] LABS: CREATININE,URINE 204.1 mg/dL; MICROALBUM/CREATININE RATIO,UR 6.9 ug/mg (<30.0); MICROALBUMIN,URINE 1.4 mg/dL (0-300.0)
[2022-05-27 12:49] LABS: THYROID STIMULATING HORMONE 2.05 uIU/mL (0.34-5.60)
== END 2022-05-27 08:05 | disposition home or self-care (01) ==
LOC: LAB.N 08:04
PROVIDERS: ATTEND Family Medicine
DX: E11.9 Type 2 diabetes mellitus without complications (principal)
CPT/HCPCS: 36415; 80050; 82043; 82570; 83036

== ENCOUNTER 2022-07-03 13:43 | Outpatient (CLI) | payer MEDICAID | END 2022-07-03 13:44 | disposition home or self-care (01) | LOC: MAC.MOP 13:43 | PROVIDERS: ATTEND Family Medicine | DX: R00.2 Palpitations (principal) | CPT/HCPCS: 93242 ==

== ENCOUNTER 2022-07-24 15:38 | Outpatient (CLI) | payer MEDICAID | END 2022-07-24 15:39 | disposition home or self-care (01) | LOC: MAC.MOP 15:38 | PROVIDERS: ATTEND Family Medicine | DX: I49.1 Atrial premature depolarization (principal); I49.3 Ventricular premature depolarization | CPT/HCPCS: 93244 ==

== ENCOUNTER 2022-08-25 07:45 | Outpatient (CLI) | payer MEDICAID ==
[2022-08-25 12:54] LABS: CALCIUM 10.4 mg/dL (8.5-10.3)
[2022-08-25 14:30] LABS: ESTIMATED AVERAGE GLUCOSE 123 mg/dL (70-100); HEMOGLOBIN A1c% 5.9 % (4.27-6.07)
== END 2022-08-25 07:46 | disposition home or self-care (01) ==
LOC: LAB.N 07:45
PROVIDERS: ATTEND Family Medicine
DX: E11.9 Type 2 diabetes mellitus without complications (principal)
CPT/HCPCS: 36415; 80048; 83036

== ENCOUNTER 2022-09-08 08:16 | Outpatient (CLI) | payer MEDICAID ==
--- NOTE | 2022-09-08 10:44 | XRAY Report ---
PROCEDURE: Hip w/Pelvis 1V LT INDICATIONS: L HIP PX TECHNIQUE: AP pelvis with lateral view(s) of the left hip(s). COMPARISON: December 27, 2016 FINDINGS: Bones: Left hip arthroplasty appears to be in appropriate position. Compared to 2017, there appears t o be increased heterotopic ossification. No acute pelvic ring disruption. Soft tissues: Bowel gas pattern is unremarkable. IMPRESSION: No acute fracture or dislocation. Appropriate positioning of the left hip arthroplasty. H owever, compared to 2017, increased heterotopic ossification is present. If there is concern for further derangement, consider cross-sectional imaging or nuclear medicine bon e scan. Reviewed by: Weston Valdivia MD on 09/08/2022 10:42 AM PST Approved by: Weston Valdivia MD on 09/08/2022 10:42 AM PST Station ID: [id number]
== END 2022-09-08 08:17 | disposition home or self-care (01) ==
LOC: DI.N 08:16
PROVIDERS: ATTEND Family Medicine
DX: M25.552 Pain in left hip (principal); Z96.642 Presence of left artificial hip joint

== ENCOUNTER 2022-09-26 15:11 | Outpatient (CLI) | payer MEDICAID ==
--- NOTE | 2022-09-26 15:57 | DEXA Report ---
PROCEDURE: Dexa Spine and/or Hip INDICATIONS: OSTEOPOROSIS TECHNIQUE: Dual energy x-ray absorptiometry (DXA) was performed on a [employer] System. Regions measur ed are the AP Spine, femoral neck, and if needed forearm. COMPARISON: 07/13/2020 FINDINGS: Lumbar Spine: Bone Mineral Density 1.250 g/cm/cm,T score 0.3, normal. Previous T score -0.3. Unclear if there brody s been true interval improvement versus an increase in degenerative changes. Right Hip: Bone Mineral Density 0.701 g/cm/cm,T score -2.8, osteoporosis. Previous T score -3.0. Right Femoral Neck: Bone Mineral Density 0.738 g/cm/cm, T score -2.6, osteoporosis. Previous T score -3.2. (T score greater or equal to -1.0: NORMAL) (T score from -1.1 to -2.4: OSTEOPENIA) (T score less than or equal to -2.5 to: OSTEOPOROSIS) Impression: Osteoporosis. T-scores are increased at the lumbar spine and right hip. Patients with diagnosis of osteoporosis or osteopenia should have regular bone mineral density assess ment. For those eligible for Medicare, routine testing is allowed once every 2 years. Testing frequ ency can be increased for patients who have rapidly progressing disease or for those who are receivin g medical therapy to restore bone mass. Reviewed by: Moses Gregory MD on 09/26/2022 3:56 PM PST Approved by: Moses Gregory MD on 09/26/2022 3:56 PM PST Station ID: [id number]
== END 2022-09-26 15:12 | disposition home or self-care (01) ==
LOC: DI 15:11
PROVIDERS: ATTEND Family Medicine
DX: M81.0 Age-related osteoporosis without current pathological fracture (principal)

== ENCOUNTER 2023-06-10 08:00 | Outpatient (CLI) | payer MEDICAID ==
[2023-06-10 11:41] LABS: BASOPHILS # (AUTO) 0.1 10^3/uL (0.0-0.1); BASOPHILS % (AUTO) 0.6 %; EOSINOPHILS # (AUTO) 0.3 10^3/uL (0.0-0.7); EOSINOPHILS % (AUTO) 3.5 %; HCT - HEMATOCRIT 44.2 % (42.0-52.0); HGB - HEMOGLOBIN 14.6 g/dL (14.0-18.0); LYMPHOCYTES # (AUTO) 3.6 10^3/uL (1.5-3.5); LYMPHOCYTES % (AUTO) 44.7 %; MEAN CORPUSCULAR VOLUME 93.8 fL (80.0-94.0); MEAN PLATELET VOLUME 9.7 fL (7.4-11.4); MONOCYTES # (AUTO) 0.4 10^3/uL (0.0-1.0); MONOCYTES % (AUTO) 5.3 %; NEUTROPHILS # (AUTO) 3.6 10^3/uL (1.5-6.6); NEUTROPHILS % (AUTO) 45.5 %; PLT - PLATELET COUNT 204 10^3/uL (130-450); RED BLOOD COUNT 4.71 10^6/uL (4.70-6.10); RED CELL DISTRIBUTION WIDTH 12.6 % (12.0-15.0)
[2023-06-10 12:53] LABS: ALBUMIN 4.7 g/dL (3.2-5.5); ALBUMIN/GLOBULIN RATIO 1.6 (1.0-2.2); ALKALINE PHOSPHATASE 57 IU/L (42-121); ALT ALANINE AMINOTRANSFERASE 17 IU/L (10-60); AST ASPARTATE AMINOTRANSFERASE 18 IU/L (10-42); BILIRUBIN,TOTAL 0.6 mg/dL (0.2-1.0); BUN - BLOOD UREA NITROGEN 10 mg/dL (6-20); CALCIUM 9.8 mg/dL (8.5-10.3); CARBON DIOXIDE - CO2 33 mmol/L (21-32); CHLORIDE 101 mmol/L (101-111); CHOL/HDL RATIO 4.3 (<5.0); CHOLESTEROL 230 mg/dL; CREATININE 0.8 mg/dL (0.6-1.3); GFR - MDRD 107 (>89); GLUCOSE 181 mg/dL (74-104); HDL CHOLESTEROL 54 mg/dL; LDL CHOLESTEROL,CALCULATED 148 mg/dL; LDL/HDL RATIO 2.7 (<3.6); POTASSIUM 3.8 mmol/L (3.5-4.5); SODIUM 138 mmol/L (135-145); TOTAL PROTEIN 7.7 g/dL (6.4-8.9); TRIGLYCERIDES 140 mg/dL (48-352); VLDL CHOLESTEROL 28 mg/dL
[2023-06-10 13:00] LABS: THYROID STIMULATING HORMONE 3.01 uIU/mL (0.34-5.60)
== END 2023-06-10 23:59 | disposition home or self-care (01) ==
LOC: LAB.N 08:00
PROVIDERS: ATTEND Family Medicine
DX: M85.80 Other specified disorders of bone density and structure, unspecified site (principal); F12.90 Cannabis use, unspecified, uncomplicated; G40.909 Epilepsy, unspecified, not intractable, without status epilepticus; M25.552 Pain in left hip; K02.9 Dental caries, unspecified; Z72.0 Tobacco use
CPT/HCPCS: 36415; 80050; 80061; 80175; 83721

== ENCOUNTER 2023-08-24 19:22 | Emergency (ER) | payer MEDICAID ==
[2023-08-24 20:25] LABS: BASOPHILS % (AUTO) 0.3 %; EOSINOPHILS # (AUTO) 0.3 10^3/uL (0.0-0.7); EOSINOPHILS % (AUTO) 2.6 %; HCT - HEMATOCRIT 40.8 % (42.0-52.0); HGB - HEMOGLOBIN 13.7 g/dL (14.0-18.0); LYMPHOCYTES # (AUTO) 1.6 10^3/uL (1.5-3.5); LYMPHOCYTES % (AUTO) 16.7 %; MEAN CORPUSCULAR HEMOGLOBIN 31.1 pg (27.0-31.0); MEAN CORPUSCULAR HGB CONC 33.6 g/dL (32.0-36.0); MEAN CORPUSCULAR VOLUME 92.7 fL (80.0-94.0); MEAN PLATELET VOLUME 9.4 fL (7.4-11.4); MONOCYTES # (AUTO) 0.6 10^3/uL (0.0-1.0); MONOCYTES % (AUTO) 5.8 %; NEUTROPHILS # (AUTO) 7.2 10^3/uL (1.5-6.6); NEUTROPHILS % (AUTO) 74.4 %; PLT - PLATELET COUNT 217 10^3/uL (130-450); RED CELL DISTRIBUTION WIDTH 12.7 % (12.0-15.0); WHITE BLOOD COUNT 9.7 x10^3/uL (4.8-10.8)
[2023-08-24 20:43] LABS: ALBUMIN 4.7 g/dL (3.2-5.5); ALBUMIN/GLOBULIN RATIO 1.7 (1.0-2.2); BILIRUBIN,TOTAL 0.6 mg/dL (0.2-1.0); CALCIUM 9.9 mg/dL (8.5-10.3); POTASSIUM 3.9 mmol/L (3.5-4.5); TOTAL PROTEIN 7.5 g/dL (6.4-8.9)
[2023-08-24 20:53] LABS: ESTIMATED AVERAGE GLUCOSE 203 mg/dL (70-100); HEMOGLOBIN A1c% 8.7 % (4.27-6.07)
[2023-08-24 21:10] LABS: CORONAVIRUS 229E-RESP PCR NOT DETECTED; CORONAVIRUS HKU1-RESP PCR NOT DETECTED; CORONAVIRUS NL63-RESP PCR NOT DETECTED; CORONAVIRUS OC43-RESP PCR NOT DETECTED; HUMAN METAPNEUMOVIRUS NOT DETECTED; INFLUENZA A- RESP PCR PANEL NOT DETECTED; RHINOVIRUS/ENTEROVIRUS NOT DETECTED; SARS-CoV-2 -RESP PCR PANEL NOT DETECTED
[2023-08-24 21:11] LABS: B. PARAPERTUSSIS- RESP PCR PAN NOT DETECTED; B. PERTUSSIS- RESP PCR PANEL NOT DETECTED; C. PNEUMONIAE- RESP PCR PANEL NOT DETECTED; INFLUENZA B - RESP PCR PANEL NOT DETECTED; M. PNEUMONIAE- RESP PCR PANEL NOT DETECTED; PARAINFLUENZA VIRUS 1 NOT DETECTED; PARAINFLUENZA VIRUS 2 NOT DETECTED; PARAINFLUENZA VIRUS 3 NOT DETECTED; PARAINFLUENZA VIRUS 4 NOT DETECTED; RSV- RESP PCR PANEL NOT DETECTED
[2023-08-24] MEDS ORDERED: metFORMIN 500 MG TABLET PO STA (21:24)
--- NOTE | 2023-08-24 21:27 | ED Physician Documentation ---
History of Present Illness - Stated complaint Stated Complaint: GENERAL MALAISE - Chief complaint Chief Complaint: General - Additonal information Additional information: Patient 38-year-old male presenting to the emergency department with generalized malaise as well as complaint of chronic tinnitus in his left ear x2 years as well as chronic hip pain that is been ongoing for several months/years. Reports has been feeling fatigued for several days. Drinking lots of fluid at home. Denies any fever, chest pain, abdominal pain. Does not currently have a primary care doctor. Review of Systems Constitutional: reports: Fatigue. denies: Fever Eyes: denies: Loss of vision Ears: denies: Loss of hearing Nose: denies: Rhinorrhea / runny nose Throat: denies: Dental pain / toothache Cardiac: denies: Chest pain / pressure Respiratory: denies: Dyspnea GI: denies: Abdominal Pain : reports: Frequency. denies: Dysuria Skin: denies: Rash Musculoskeletal: denies: Neck pain PD PAST MEDICAL HISTORY - Past Medical History Cardiovascular: Hypertension, Other Respiratory: None Neuro: Seizure disorder Endocrine/Autoimmune: None GI: None : None HEENT: None Psych: Other Musculoskeletal: None Derm: None - Past Surgical History Past Surgical History: Yes Ortho: Hip replacement, Other - Present Medications Home Medications: Ambulatory Orders Medication Instructions Recorded Confirmed Carvedilol 12.5 mg PO BID 06/19/14 04/04/22 lamoTRIgine [LaMICtal] 100 mg PO BID #60 tablet 04/04/22 metFORMIN [Glucophage] 500 mg PO BIDWM #60 tablet 08/24/23 - Allergies Allergies/Adverse Reactions: Allergies Allergy/AdvReac Type Severity Reaction Status Date / Time No Known Drug Allergies Allergy Verified 08/24/23 19:25 - Social History Does the pt smoke?: Yes Smoking Status: Current every day smoker Does the pt drink ETOH?: Yes Does the pt have substance abuse?: Yes Substance Use and Type: Marijuana - Immunizations Immunizations are current?: Yes - POLST Patient has POLST: No PD ED PE NORMAL - Vitals Vital signs reviewed: Yes - General General: Alert and oriented X 3, No acute distress, Well developed/nourished - HEENT HEENT: Atraumatic, PERRL, EOMI, Ears normal, Moist mucous membranes, Pharynx benign - Neck Neck: Supple, no meningeal sign, No JVD - Cardiac Cardiac: RRR, No murmur, No gallop, No rub - Respiratory Respiratory: No respiratory distress - Abdomen Abdomen: Normal bowel sounds - Male Male : Deferred - Rectal Rectal: Deferred - Back Back: No CVA TTP - Derm Derm: Normal color - Extremities Extremities: No deformity - Neuro Neuro: Alert and oriented X 3, delivery professional 2-12 intact, No motor deficit, No sensory deficit, Normal speech Results - Vitals Vitals: Vital Signs - 24 hr 08/24/23 19:25 Temperature 37.2 C Heart Rate 77 Respiratory 16 Rate Blood Pressure 130/90 H O2 Saturation 99 Oxygen O2 Source Room air - Labs Labs: Laboratory Tests 08/24/23 08/24/23 08/24/23 20:00 20:21 20:21 WBC 9.7 RBC 4.40 L Hgb 13.7 L Hct 40.8 L MCV 92.7 MCH 31.1 H MCHC 33.6 RDW 12.7 Plt Count 217 MPV 9.4 Neut # (Auto) 7.2 H Lymph # (Auto) 1.6 [place] # (Auto) 0.6 Eos # (Auto) 0.3 Baso # (Auto) 0.0 Absolute Nucleated RBC 0.00 Nucleated RBC % 0.0 Sodium 137 Potassium 3.9 Chloride 99 L Carbon Dioxide 33 H Anion Gap 5.0 L BUN 9 Creatinine 1.0 Estimated GFR (MDRD) 83 L Glucose 282 H Estimat Average Glucose Hemoglobin A1c % Calcium 9.9 Total Bilirubin 0.6 AST 16 ALT 18 Alkaline Phosphatase 66 Total Protein 7.5 Albumin 4.7 Globulin 2.8 Albumin/Globulin Ratio 1.7 Lipase 10 L Nasal Adenovirus (PCR) NOT DETECTED Nasal B. parapertussis DNA (PCR) NOT DETECTED Nasal Coronavir 229E PCR NOT DETECTED Nasal Coronavir HKU1 PCR NOT DETECTED Nasal Coronavir NL63 PCR NOT DETECTED Nasal Coronavir OC43 PCR NOT DETECTED Nasal Enterovir/Rhinovir PCR NOT DETECTED Nasal Influenza B PCR NOT DETECTED Nasal Influenza A PCR NOT DETECTED Nasal Parainfluen 1 PCR NOT DETECTED Nasal Parainfluen 2 PCR NOT DETECTED Nasal Parainfluen 3 PCR NOT DETECTED Nasal Parainfluen 4 PCR NOT DETECTED Nasal RSV (PCR) NOT DETECTED Nasal B.pertussis DNA PCR NOT DETECTED Nasal C.pneumoniae (PCR) NOT DETECTED Shailesh Human Metapneumo PCR NOT DETECTED Nasal M.pneumoniae (PCR) NOT DETECTED Nasal SARS-CoV-2 (PCR) NOT DETECTED 08/24/23 20:21 WBC RBC Hgb Hct MCV MCH MCHC RDW Plt Count MPV Neut # (Auto) Lymph # (Auto) [place] # (Auto) Eos # (Auto) Baso # (Auto) Absolute Nucleated RBC Nucleated RBC % Sodium Potassium Chloride Carbon Dioxide Anion Gap BUN Creatinine Estimated GFR (MDRD) Glucose Estimat Average Glucose 203 H Hemoglobin A1c % 8.7 H Calcium Total Bilirubin AST ALT Alkaline Phosphatase Total Protein Albumin Globulin Albumin/Globulin Ratio Lipase Nasal Adenovirus (PCR) Nasal B. parapertussis DNA (PCR) Nasal Coronavir 229E PCR Nasal Coronavir HKU1 PCR Nasal Coronavir NL63 PCR Nasal Coronavir OC43 PCR Nasal Enterovir/Rhinovir PCR Nasal Influenza B PCR Nasal Influenza A PCR Nasal Parainfluen 1 PCR Nasal Parainfluen 2 PCR Nasal Parainfluen 3 PCR Nasal Parainfluen 4 PCR Nasal RSV (PCR) Nasal B.pertussis DNA PCR Nasal C.pneumoniae (PCR) Shailesh Human Metapneumo PCR Nasal M.pneumoniae (PCR) Nasal SARS-CoV-2 (PCR) PD Medical Decision Making - ED course Complexity details: reviewed old records, reviewed results, considered differential, d/w patient ED course: Patient 38-year-old male presenting to the emergency department with complaint of fatigue times several days as well as left-sided tinnitus that has been ongoing for years and hip pain. Afebrile, he medically stable. Presents mostly with concerns for chronic complaints. HEENT exam did demonstrate some mild scar tissue on his left tympanic membrane but no fluid collection or indications of infection. No mastoid tenderness, nuchal rigidity. Patient's physical exam otherwise very reassuring. I did obtain basic labs which demonstrated hyperglycemia. I follow this up with an A1c which was 8.3. Patient given dose metformin. We will discharge for follow-up with primary care. Will provide resources to help him find a PCP as well as a 30-day supply of metformin. Provided with information about likely newly diagnosed type 2 diabetes. Clear return precautions given. Departure - Departure Disposition: 01 Home, Self Care Clinical Impression: DM (diabetes mellitus) Qualifiers: Diabetes mellitus type: other specified (including JJ) Diabetes mellitus fpc insulin use: without fpc use Diabetes mellitus complication status: without complication Qualified Code(s): E13.9 - Other specified diabetes mellitus without complications Instructions: Diabetes Type 2 Coping, Diabetes Type 2 Oral Meds Prescriptions: metFORMIN [Glucophage] 500 mg PO BIDWM #60 tablet Comments: Thank you for allowing us to care for you today at [facility]. Today in the emergency department your evaluated for any possible dangerous or life-threatening medical emergency. Overall all of your testing was reassuring however you did have an elevated blood sugar. Your screening test for diabetes was positive. I like you to begin a medication on his metformin. Attached some information about this condition. Please take it twice daily. It is extremely important you establish yourself with a primary care doctor. Attached in this discharge packet is information about local area PCPs. You will want to follow-up with 1 as soon as possible concerning your diagnosis as well as for continuing monitoring and future strategies and education about diabetes. In the meantime I recommend getting plenty of rest and drinking plenty of fluids. If it anytime you develop any new or worsening symptoms please not hesitate to return. Forms: PCP List
[2023-08-24 21:45] VITALS: BP 124/83; O2SAT 100
== END 2023-08-24 21:40 | disposition home or self-care (01) ==
LOC: ED 19:22
DX: E11.9 Type 2 diabetes mellitus without complications (principal); I10 Essential (primary) hypertension; F17.200 Nicotine dependence, unspecified, uncomplicated
CPT/HCPCS: 36415; 80053; 83036; 83690; 85025; 87633; 99283; A9270

== ENCOUNTER 2023-10-16 07:31 | Outpatient (CLI) | payer MEDICAID ==
[2023-10-16 12:30] LABS: ESTIMATED AVERAGE GLUCOSE 180 mg/dL (70-100); HEMOGLOBIN A1c% 7.9 % (4.27-6.07)
[2023-10-16 12:38] LABS: CALCIUM 10.2 mg/dL (8.5-10.3); CREATININE 0.9 mg/dL (0.6-1.3); POTASSIUM 3.8 mmol/L (3.5-4.5)
== END 2023-10-16 07:32 | disposition home or self-care (01) ==
LOC: LAB.N 07:31
PROVIDERS: ATTEND Family Medicine
DX: E11.9 Type 2 diabetes mellitus without complications (principal)
CPT/HCPCS: 36415; 80048; 83036

== ENCOUNTER 2023-10-28 14:15 | Outpatient (CLI) | payer MEDICAID ==
--- NOTE | 2023-10-29 12:01 | XRAY Report ---
PROCEDURE: Femur 2+V LT INDICATIONS: PAIN IN LLL AND HX OF HIP HEMIARTHROPLASTY TECHNIQUE: 2 views of the femur were acquired. COMPARISON: Left hip radiographs 09/08/2022. FINDINGS: Bones: Postsurgical changes from left hip hemiarthroplasty and additional cerclage wire. Metal hardw are appears to be intact without signs of loosening. No acute osseous fracture identified. Heterotopi c ossifications are seen adjacent to the left hip. Soft tissues: No suspicious soft tissue calcifications. IMPRESSION: Postsurgical changes from left hip arthroplasty. No acute hardware complication or osseous abnormalit y is seen radiographically. Reviewed by: Moses Newman MD on 10/29/2023 11:59 AM PST Approved by: Moses Newman MD on 10/29/2023 11:59 AM PST Station ID: [id number]
== END 2023-10-28 14:16 | disposition home or self-care (01) ==
LOC: DI.N 14:15
PROVIDERS: ATTEND Family Medicine
DX: M79.662 Pain in left lower leg (principal); Z96.642 Presence of left artificial hip joint

== ENCOUNTER 2024-02-05 08:01 | Outpatient (CLI) | payer MEDICAID ==
[2024-02-05 11:55] LABS: ESTIMATED AVERAGE GLUCOSE 128 mg/dL (70-100); HEMOGLOBIN A1c% 6.1 % (4.27-6.07)
[2024-02-05 12:12] LABS: CALCIUM 10.4 mg/dL (8.5-10.3); CREATININE 0.8 mg/dL (0.6-1.3); POTASSIUM 4.1 mmol/L (3.5-4.5)
== END 2024-02-05 08:02 | disposition home or self-care (01) ==
LOC: LAB.N 08:01
PROVIDERS: ATTEND Family Medicine
DX: E11.65 Type 2 diabetes mellitus with hyperglycemia (principal)
CPT/HCPCS: 36415; 80048; 83036

== ENCOUNTER 2024-02-18 10:54 | Outpatient (CLI) | payer MEDICAID ==
--- NOTE | 2024-02-18 16:29 | XRAY Report ---
PROCEDURE: Chest 2V INDICATIONS: POUNDING HEARTBEAT TECHNIQUE: 2 views of the chest were acquired. COMPARISON: None. FINDINGS: Surgical changes and devices: None. Lungs and pleura: No pneumothorax. Questionable small right pleural effusion versus scarring. Lungs are clear. Mediastinum: Mediastinal contours appear normal. Heart size is normal. Bones and chest wall: No suspicious bony lesions. Overlying soft tissues appear unremarkable. IMPRESSION: Small right pleural effusion versus scarring Reviewed by: Silas Hill MD on 02/18/2024 4:28 PM PDT Approved by: Silas Hill MD on 02/18/2024 4:28 PM PDT Station ID: [id number]
== END 2024-02-18 10:55 | disposition home or self-care (01) ==
LOC: DI.N 10:54
PROVIDERS: ATTEND Family Medicine
DX: R00.2 Palpitations (principal); R91.8 Other nonspecific abnormal finding of lung field

== ENCOUNTER 2024-07-22 11:24 | Outpatient (CLI) | payer MEDICAID ==
[2024-07-22 17:58] LABS: BASOPHILS # (AUTO) 0.1 10^3/uL (0.0-0.1); BASOPHILS % (AUTO) 0.9 %; EOSINOPHILS # (AUTO) 0.3 10^3/uL (0.0-0.7); EOSINOPHILS % (AUTO) 3.7 %; HCT - HEMATOCRIT 42.7 % (42.0-52.0); HGB - HEMOGLOBIN 13.7 g/dL (14.0-18.0); LYMPHOCYTES # (AUTO) 2.7 10^3/uL (1.5-3.5); LYMPHOCYTES % (AUTO) 40.9 %; MEAN CORPUSCULAR HEMOGLOBIN 30.4 pg (27.0-31.0); MEAN CORPUSCULAR HGB CONC 32.1 g/dL (32.0-36.0); MEAN CORPUSCULAR VOLUME 94.9 fL (80.0-94.0); MEAN PLATELET VOLUME 9.9 fL (7.4-11.4); MONOCYTES # (AUTO) 0.5 10^3/uL (0.0-1.0); MONOCYTES % (AUTO) 6.9 %; NEUTROPHILS # (AUTO) 3.2 10^3/uL (1.5-6.6); NEUTROPHILS % (AUTO) 47.3 %; PLT - PLATELET COUNT 261 10^3/uL (130-450); RED CELL DISTRIBUTION WIDTH 12.1 % (12.0-15.0); WHITE BLOOD COUNT 6.7 x10^3/uL (4.8-10.8)
[2024-07-22 18:27] LABS: ALBUMIN 4.6 g/dL (3.2-5.5); ALBUMIN/GLOBULIN RATIO 1.6 (1.0-2.2); ALKALINE PHOSPHATASE 45 IU/L (42-121); ALT ALANINE AMINOTRANSFERASE 12 IU/L (10-60); AST ASPARTATE AMINOTRANSFERASE 16 IU/L (10-42); BILIRUBIN,TOTAL 0.5 mg/dL (0.2-1.0); BUN - BLOOD UREA NITROGEN 11 mg/dL (6-20); CALCIUM 9.6 mg/dL (8.5-10.3); CARBON DIOXIDE - CO2 34 mmol/L (21-32); CHLORIDE 100 mmol/L (101-111); CHOL/HDL RATIO 3.4 (<5.0); CHOLESTEROL 165 mg/dL; CREATININE 0.8 mg/dL (0.6-1.3); GFR - MDRD 107 (>89); GLUCOSE 127 mg/dL (74-104); HDL CHOLESTEROL 49 mg/dL; LDL CHOLESTEROL,CALCULATED 89 mg/dL; LDL/HDL RATIO 1.8 (<3.6); POTASSIUM 3.9 mmol/L (3.5-4.5); SODIUM 139 mmol/L (135-145); TOTAL PROTEIN 7.4 g/dL (6.4-8.9); TRIGLYCERIDES 136 mg/dL; VLDL CHOLESTEROL 27 mg/dL
[2024-07-22 18:32] LABS: THYROID STIMULATING HORMONE 1.66 uIU/mL (0.34-5.60)
[2024-07-22 20:45] LABS: ESTIMATED AVERAGE GLUCOSE 120 mg/dL (70-100); HEMOGLOBIN A1c% 5.8 % (4.27-6.07)
== END 2024-07-22 11:25 | disposition home or self-care (01) ==
LOC: LAB.N 11:24
PROVIDERS: ATTEND Family Medicine
DX: E11.65 Type 2 diabetes mellitus with hyperglycemia (principal); I49.9 Cardiac arrhythmia, unspecified; M54.2 Cervicalgia; M81.0 Age-related osteoporosis without current pathological fracture; K08.9 Disorder of teeth and supporting structures, unspecified
CPT/HCPCS: 36415; 80050; 80061; 83036; 83721

== ENCOUNTER 2024-07-28 14:09 | Outpatient (CLI) | payer MEDICAID ==
--- NOTE | 2024-07-29 16:36 | XRAY Report ---
PROCEDURE: Foot 1-2V BL INDICATIONS: FOOT/HEEL PAIN TECHNIQUE: 2 views of bilateral feet were obtained. COMPARISON: None. FINDINGS: Bones: Osteopenia. No fractures or dislocations. No suspicious bony lesions. Soft tissues: No tibiotalar joint effusion. Achilles tendon appears unremarkable. IMPRESSION: Suggestion of osteopenia No acute osseous abnormality. Reviewed by: Silas Hill MD on 07/29/2024 4:35 PM PDT Approved by: Silas Hill MD on 07/29/2024 4:35 PM PDT Station ID: [id number]
== END 2024-07-28 14:10 | disposition home or self-care (01) ==
LOC: DI.N 14:09
PROVIDERS: ATTEND Family Medicine
DX: M79.671 Pain in right foot (principal); M79.672 Pain in left foot